=== PATIENT | male | born 1985 | race Caucasian/White ===

== ENCOUNTER 2022-09-08 19:23 | Emergency (ER) | payer OTHER ==
[2022-09-08] MEDS ORDERED: Ketorolac Tromethamine 30 MG/ML VIAL ONE (19:33)
== END 2022-09-08 21:01 | disposition home or self-care (01) ==
LOC: ERS 19:23
DX: M54.2 Cervicalgia (principal); F10.129 Alcohol abuse with intoxication, unspecified; V89.2XXA Person injured in unspecified motor-vehicle accident, traffic, initial encounter; Y90.9 Presence of alcohol in blood, level not specified
CPT/HCPCS: 70450; 71045; 72125; 96374; J1885

== ENCOUNTER 2023-04-28 19:25 | Emergency (ER) | payer SELFPAY ==
[2023-04-28 20:13] LABS: #Basophils 0.1 thou/uL (0.0-0.2); #Monocytes 0.3 thou/uL (0.11-0.59); #Neutrophils 2.1 thou/uL (1.40-6.50); %Basophils 1.7 % (0.0-1.0); %Eosinophils 0.6 % (0.0-10.0); %Lymphocytes 46.4 % (21.0-51.0); %Monocytes 5.7 % (0.0-10.0); %Neutrophils 45.6 % (42.0-75.0); Hemoglobin 15.2 g/dL (14.0-18.0); Mean Corpuscular HGB CONC 34.5 g/dL (32.0-36.0); Mean Corpuscular Hemoglobin 31.7 pg (27.0-31.0); Mean Corpuscular Volume 91.7 fl (78.0-98.0); Mean Platelet Volume 8.7 fL (7.4-10.4); Platelet Count 277 10x3/uL (130-400); RBC Distribution Width 12.3 % (11.5-14.5); White Blood Cell (WBC) Count 4.7 10x3/uL (4.8-10.8)
[2023-04-28] MEDS ORDERED: Fluorescein Opthalmic Strip ONE (20:21)
[2023-04-28] MEDS ORDERED: Proparacaine 0.5% Opth 15 ML BOT ONE (20:21)
[2023-04-28 20:40] LABS: ALT (SGPT) 15 U/L (8-55); AST (SGOT) 24 U/L (5-34); Acetaminophen Less than 10 mcg/mL (10.0-30.0); Albumin 4.7 g/dL (3.5-5.0); Alcohol 189.2 mg/dL (Less than 10); Alkaline Phosphatase 58 U/L (40-110); Anion Gap 17 mmol/L (10-20); BUN (Urea Nitrogen) 5 mg/dL (8.9-20.6); Bilirubin, Total 0.3 mg/dL (0.2-1.2); Calc. Creatinine Clearance 0 mL/min (70-130); Calcium 8.6 mg/dL (7.8-10.44); Carbon Dioxide 24 mmol/L (22-29); Chloride 102 mmol/L (98-107); Estimated GFR 118; Globulin 3.1 g/dL (2.4-3.5); Glucose 107 mg/dL (70-105); Potassium 3.9 mmol/L (3.5-5.1); Protein, Total 7.8 g/dL (6.0-8.3); Salicylate Less than 8.0 mg/dL (15.0-30.0); Sodium 139 mmol/L (136-145)
[2023-04-28] MEDS ORDERED: LORazepam 2 MG/ML SYR.(CARPUJECT) ONE (20:53)
[2023-04-28] MEDS ORDERED: Famotidine/PF 20 mg/2ml Vial ONE (20:56)
[2023-04-28 21:30] LABS: Amphetamine Not Detected (NotDetected); Barbiturates Screen Not Detected (NotDetected); Benzodiazepine Screen Not Detected (NotDetected); Cocaine Metabolite Screen Detected (NotDetected); Methadone Not Detected (NotDetected); Methamphetamine Not Detected (NotDetected); Opiate Screen Not Detected (NotDetected); Oxycodone Screen Not Detected (NotDetected); Phencyclidine (PCP) Not Detected (NotDetected); THC/Cannabinoid Screen Not Detected (NotDetected); Tricyclic Screen Not Detected (NotDetected)
== END 2023-04-28 22:41 | disposition home or self-care (01) ==
LOC: ERS 19:25
DX: F10.129 Alcohol abuse with intoxication, unspecified (principal); R03.0 Elevated blood-pressure reading, without diagnosis of hypertension
CPT/HCPCS: 36415; 80053; 80306; 80307; 85025; 93005; 96374; 96375; J2060; S0028